=== PATIENT | male | born 1970 | race African-American/Black ===

== ENCOUNTER 2024-04-19 07:11 | Inpatient (IN) | payer MEDICAID ==
[~2024-04-19] VITALS: Ht 172.7 cm; Wt 118.4 kg
[2024-04-19 07:16] VITALS: O2SAT 98
[2024-04-19 08:02] LABS: BASOPHILS % 0.2 % (0.0-2.0); EOSINOPHILS % 4.6 % (0.0-5.0); HEMATOCRIT. 46.7 % (42.0-52.0); LYMPHOCYTES % 16.7 % (20.0-50.0); MEAN CORPUSCULAR HEMOGLOBIN 26.2 pg (28.0-32.0); MEAN CORPUSCULAR HGB CONC 32.1 g/dL (31.0-37.0); MEAN CORPUSCULAR VOLUME 81.5 fL (80.0-94.0); MEAN PLATELET VOLUME 7.7 fl (7.4-10.4); MONOCYTES % 8.6 % (2.0-8.0); NEUTROPHILS % 69.9 % (40.0-76.0); PLATELET 197 x1000/uL (130-400); RED BLOOD CELL COUNT 5.73 mill/uL (4.7-6.1); RED CELL DISTRIBUTION WIDTH 16.3 % (11.6-14.6)
[2024-04-19 08:11] LABS: PROTHROMBIN TIME 11.1 sec (9.6-11.0)
[2024-04-19 08:14] LABS: CHLORIDE 103 mEq/L (98-107); POTASSIUM 3.8 mEq/L (3.5-5.1); SODIUM 138 mEq/L (136-145)
[2024-04-19 08:15] LABS: CALCIUM 8.8 mg/dL (8.7-10.4); CARBON DIOXIDE 28 mEq/L (21-32)
[2024-04-19 08:20] LABS: CREATININE 0.8 mg/dL (0.6-1.3); GLUCOSE 160 mg/dL (70-105); UREA NITROGEN BLOOD 16 mg/dL (9-23)
[2024-04-19 08:21] LABS: ETHANOL BLOOD < 10 mg/dL (<10)
[2024-04-19 08:27] LABS: TROPONIN I HIGH SENSITIVITY < 4 ng/L (3.0-53)
[2024-04-19] MEDS: IOHEXOL-350 100 ML BOTTLE ONE (10:24)
[2024-04-19 13:35] LABS: CLARITY URINE CLEAR (CLEAR); COLOR URINE YELLOW (YELLOW); GLUCOSE URINE 3+ (NEGATIVE); KETONES URINE 2+ (NEGATIVE); LEUKOCYTE ESTERASE URINE NEGATIVE (NEGATIVE); NITRITE URINE NEGATIVE (NEGATIVE); OCCULT BLOOD URINE NEGATIVE (NEGATIVE); PROTEIN URINE NEGATIVE (NEGATIVE); SPECIFIC GRAVITY URINE 1.075 (1.005-1.030)
[2024-04-19 13:46] LABS: RBC URINE NONE SEEN /hpf (0-2); SQUAMOUS EPITHELIAL CELL URINE NONE SEEN /lpf (RARE/1+); WBC URINE 0-2 /hpf (0-2)
[2024-04-19 13:47] LABS: BACTERIA URINE RARE; YEAST URINE NONE SEEN
[2024-04-19 14:01] LABS: *AMPHETAMINES SCREEN URINE NEGATIVE (NEGATIVE); *BARBITURATES SCREEN URINE NEGATIVE (NEGATIVE); *BENZODIAZEPINES SCREEN URINE NEGATIVE (NEGATIVE); *COCAINE SCREEN URINE PRESUMPTIVE POSITIVE (NEGATIVE); METHADONE URINE SCREEN NEGATIVE (NEGATIVE); OPIATES URINE SCREEN NEGATIVE (NEGATIVE)
[2024-04-19 14:02] LABS: CANNABINOID URINE SCREEN NEGATIVE (NEGATIVE); ECSTASY MDMA SCREEN URINE NEGATIVE (NEGATIVE); PHENCYCLIDINE URINE SCREEN NEGATIVE (NEGATIVE)
[2024-04-19 18:47] VITALS: BP 168/99; PULSE 91; RESP 20; TEMP 36.4736
[2024-04-19 20:00] VITALS: BP 165/78; PULSE 65; RESP 18; TEMP 36.6696; O2SAT 97
[2024-04-19] MEDS: FAMOTIDINE 20MG TABLET PO SCH (20:48)
[2024-04-19] MEDS: AMLODIPINE 10MG TABLET PO SCH (20:48)
[2024-04-20] VITALS: BP 132/69; PULSE 60; RESP 19; TEMP 36.3918; O2SAT 97
[2024-04-20 08:00] VITALS: BP 133/68; PULSE 65; RESP 20; TEMP 36.72516; O2SAT 98
[2024-04-20] MEDS: POVIDONE-IODINE 10% TOPICAL SOLN 240ML TOP SCH (09:10)
[2024-04-20 12:00] VITALS: BP 141/69; PULSE 69; RESP 18; TEMP 36.16956; O2SAT 98
[2024-04-20 16:00] VITALS: BP 139/70; PULSE 70; RESP 19; TEMP 36.28068; O2SAT 99
[2024-04-20] MEDS: CEFTRIAXONE 1GM/50ML 50 ML IV SCH (16:57)
[2024-04-20 18:08] LABS: BASOPHILS % 0.2 % (0.0-2.0); EOSINOPHILS % 3.5 % (0.0-5.0); HEMATOCRIT. 47.1 % (42.0-52.0); HEMOGLOBIN. 15.4 g/dL (14.0-18.0); MEAN CORPUSCULAR HEMOGLOBIN 26.3 pg (28.0-32.0); MEAN CORPUSCULAR HGB CONC 32.6 g/dL (31.0-37.0); MEAN CORPUSCULAR VOLUME 80.8 fL (80.0-94.0); MEAN PLATELET VOLUME 7.8 fl (7.4-10.4); MONOCYTES % 8.6 % (2.0-8.0); NEUTROPHILS % 55.7 % (40.0-76.0); PLATELET 191 x1000/uL (130-400); RED BLOOD CELL COUNT 5.83 mill/uL (4.7-6.1); RED CELL DISTRIBUTION WIDTH 16.2 % (11.6-14.6); WHITE BLOOD COUNT 6.3 x1000/uL (4.5-11.0)
[2024-04-20 18:18] LABS: CARBON DIOXIDE 26 mEq/L (21-32); CHLORIDE 102 mEq/L (98-107); POTASSIUM 3.8 mEq/L (3.5-5.1); SODIUM 135 mEq/L (136-145)
[2024-04-20 18:19] LABS: CALCIUM 8.9 mg/dL (8.7-10.4)
[2024-04-20 18:24] LABS: CREATININE 0.7 mg/dL (0.6-1.3); GLUCOSE 152 mg/dL (70-105); UREA NITROGEN BLOOD 11 mg/dL (9-23)
[2024-04-20] MEDS: VANCOMYCIN 2,000 MG in SODIUM CHLORIDE 0.9% 500 ML IV SCH (19:08)
[2024-04-20 20:00] VITALS: BP 131/77; PULSE 62; RESP 18; TEMP 36.3918; O2SAT 99
[2024-04-20] MEDS: MUPIROCIN 2% OINT 22GM TOP SCH (21:44)
[2024-04-20] MEDS: VANCOMYCIN 1.25GM PMX (XELLIA) 250 ML IV SCH (23:00)
[2024-04-20] MEDS ORDERED: IOHEXOL-300 100 ML BOTTLE ONE (23:41)
[2024-04-21] VITALS: BP 127/59; PULSE 55; RESP 18; TEMP 36.3918; O2SAT 99
[2024-04-21 04:00] VITALS: BP 117/57; PULSE 56; RESP 18; TEMP 36.50292; O2SAT 99
[2024-04-21 08:00] VITALS: BP 127/67; PULSE 70; RESP 18; TEMP 36.16956; O2SAT 98
[2024-04-21 12:00] VITALS: BP 131/70; PULSE 69; RESP 18; TEMP 36.114; O2SAT 98
[2024-04-21 16:00] VITALS: BP 137/74; PULSE 64; RESP 18; TEMP 36.44736; O2SAT 18
[2024-04-21 20:00] VITALS: BP 122/62; PULSE 59; RESP 18; TEMP 36.6696; O2SAT 100
[2024-04-22] VITALS: BP 126/68; PULSE 60; RESP 18; TEMP 36.6696; O2SAT 98
[2024-04-22 04:00] VITALS: BP 146/73; PULSE 59; RESP 18; TEMP 36.6696; O2SAT 100
[2024-04-22 08:00] VITALS: BP 145/70; PULSE 54; PULSE 61; RESP 18; TEMP 36.16956; TEMP 36.6696; O2SAT 96
[2024-04-22 08:43] LABS: CHLORIDE 104 mEq/L (98-107); POTASSIUM 4.5 mEq/L (3.5-5.1); SODIUM 135 mEq/L (136-145)
[2024-04-22 08:44] LABS: CALCIUM 8.7 mg/dL (8.7-10.4); CARBON DIOXIDE 26 mEq/L (21-32)
[2024-04-22 08:49] LABS: CREATININE 0.8 mg/dL (0.6-1.3); GLUCOSE 202 mg/dL (70-105); UREA NITROGEN BLOOD 19 mg/dL (9-23)
[2024-04-22 12:00] VITALS: BP 136/67; PULSE 61; RESP 18; TEMP 36.16956; O2SAT 98
[2024-04-22] MEDS: KETOROLAC 30MG/ML VIAL IV PRN (15:45)
[2024-04-22 16:00] VITALS: BP 147/78; PULSE 88; RESP 18; TEMP 36.3918; O2SAT 98
[2024-04-22] MEDS: VANCOMYCIN 1.5GM PMX (XELLIA) 300 ML IV SCH (16:35)
[2024-04-22 20:00] VITALS: BP 140/72; PULSE 69; RESP 18; TEMP 36.22512; O2SAT 99
[2024-04-23] VITALS: BP 149/78; PULSE 78; RESP 19; TEMP 36.55848; O2SAT 93
[2024-04-23 02:00] VITALS: BP 138/78; PULSE 72; RESP 18; TEMP 36.28068; O2SAT 93
[2024-04-23 04:00] VITALS: BP 145/78; PULSE 78; RESP 18; TEMP 36.3918; O2SAT 93
[2024-04-23 12:00] VITALS: BP 125/69; PULSE 57; RESP 18; TEMP 36.72516; O2SAT 100
[2024-04-23 16:00] VITALS: BP 133/78; PULSE 63; RESP 18; TEMP 36.61404; O2SAT 98
[2024-04-23 20:00] VITALS: BP 127/66; RESP 18; TEMP 36.83628; O2SAT 99
[2024-04-23] MEDS: VANCOMYCIN 1.5GM/250ML 250 ML IV SCH (22:05)
[2024-04-24] VITALS: BP 116/70; PULSE 77; RESP 17; TEMP 36.44736; O2SAT 97
[2024-04-24 04:00] VITALS: BP 124/80; PULSE 68; RESP 16; TEMP 37.00296; O2SAT 98
[2024-04-24 08:00] VITALS: BP 137/56; PULSE 52; RESP 19; TEMP 36.50292; O2SAT 100
[2024-04-24 12:00] VITALS: BP 138/68; PULSE 57; RESP 20; TEMP 36.61404; O2SAT 100
[2024-04-24 12:29] LABS: BASOPHILS % 0.1 % (0.0-2.0); EOSINOPHILS % 1.6 % (0.0-5.0); HEMATOCRIT. 47.8 % (42.0-52.0); HEMOGLOBIN. 15.3 g/dL (14.0-18.0); LYMPHOCYTES % 31.3 % (20.0-50.0); MEAN CORPUSCULAR HEMOGLOBIN 26.1 pg (28.0-32.0); MEAN CORPUSCULAR VOLUME 81.5 fL (80.0-94.0); MEAN PLATELET VOLUME 8.3 fl (7.4-10.4); MONOCYTES % 7.9 % (2.0-8.0); NEUTROPHILS % 59.1 % (40.0-76.0); PLATELET 175 x1000/uL (130-400); RED BLOOD CELL COUNT 5.87 mill/uL (4.7-6.1); RED CELL DISTRIBUTION WIDTH 15.9 % (11.6-14.6); WHITE BLOOD COUNT 5.3 x1000/uL (4.5-11.0)
[2024-04-24 12:33] LABS: CHLORIDE 102 mEq/L (98-107); POTASSIUM 4.4 mEq/L (3.5-5.1); SODIUM 135 mEq/L (136-145)
[2024-04-24 12:34] LABS: CARBON DIOXIDE 28 mEq/L (21-32)
[2024-04-24 12:35] LABS: CALCIUM 9.1 mg/dL (8.7-10.4)
[2024-04-24 12:39] LABS: CREATININE 0.8 mg/dL (0.6-1.3); GLUCOSE 222 mg/dL (70-105); UREA NITROGEN BLOOD 13 mg/dL (9-23); VANCOMYCIN TROUGH 16.9 ug/mL (5.0-10.0)
[2024-04-24 16:00] VITALS: BP 124/62; PULSE 58; RESP 20; TEMP 36.50292; O2SAT 99
[2024-04-24 20:00] VITALS: BP 136/66; PULSE 63; RESP 18; TEMP 36.3918; O2SAT 97
[2024-04-24] MEDS: HYDROCODONE/ACETAMINOPHEN 5/325MG TABLET PO PRN (21:29)
[2024-04-24] MEDS ORDERED: NALOXONE HCL 0.4MG/ML VIAL IV PRN (21:30)
[2024-04-25] VITALS: BP 134/68; PULSE 70; RESP 18; TEMP 36.61404; O2SAT 98
[2024-04-25 04:00] VITALS: BP 131/63; PULSE 53; RESP 18; TEMP 36.50292; O2SAT 96
[2024-04-25 08:00] VITALS: BP 135/80; PULSE 52; RESP 17; TEMP 36.00288; O2SAT 99
[2024-04-25 12:00] VITALS: BP 109/48; PULSE 57; RESP 18; TEMP 36.3918; O2SAT 99
[2024-04-25 16:00] VITALS: BP 135/63; PULSE 58; RESP 18; TEMP 36.00288; O2SAT 98
[2024-04-25 20:00] VITALS: BP 113/55; PULSE 58; RESP 19; TEMP 36.61404; O2SAT 96
[2024-04-26] VITALS: BP 124/57; PULSE 57; RESP 18; TEMP 36.114; O2SAT 100
[2024-04-26 04:00] VITALS: BP 126/61; PULSE 54; RESP 18; TEMP 35.89176; O2SAT 98
[2024-04-26 08:00] VITALS: BP 129/69; PULSE 55; RESP 20; RESP 67; TEMP 36.6696; O2SAT 97
[2024-04-26 12:00] VITALS: BP 121/62; PULSE 81; RESP 19; TEMP 36.50292; O2SAT 99
[2024-04-26 16:00] VITALS: BP_SYST 119; BP_SYST 121; BP_DIAS 62; BP_DIAS 63; PULSE 79; PULSE 81; RESP 19; TEMP 36.28068; TEMP 36.50292; O2SAT 99
[2024-04-26 20:42] VITALS: BP 118/65; PULSE 53; RESP 19; TEMP 36.55848; O2SAT 100
[2024-04-27 00:52] VITALS: BP 126/61; PULSE 58; RESP 19; TEMP 36.16956; O2SAT 99
[2024-04-27 04:00] VITALS: BP 119/66; PULSE 54; RESP 19; TEMP 36.3918; O2SAT 98
[2024-04-27 08:00] VITALS: BP 128/67; PULSE 59; RESP 19; TEMP 36.50292; O2SAT 100
== END 2024-04-27 15:25 | disposition home or self-care (01) | DRG 816 ==
LOC: ER 07:11 → EDBD 07:11 → 7EST 08:17 → EDBD 08:17 → EDBEDREQTM 08:23 → EDBEDREQ 08:23 → 8EST 04-24 11:10
PROVIDERS: ADMIT Internal Medicine; ATTEND Internal Medicine
DX: T40.5X1A Poisoning by cocaine, accidental (unintentional), initial encounter (principal); G92.8 Other toxic encephalopathy; L89.890 Pressure ulcer of other site, unstageable; S91.301A Unspecified open wound, right foot, initial encounter; E66.9 Obesity, unspecified; M79.671 Pain in right foot; L03.113 Cellulitis of right upper limb; Z68.39 Body mass index [BMI] 39.0-39.9, adult; F14.90 Cocaine use, unspecified, uncomplicated; S51.801A Unspecified open wound of right forearm, initial encounter; F19.10 Other psychoactive substance abuse, uncomplicated; Z71.51 Drug abuse counseling and surveillance of drug abuser; X58.XXXA Exposure to other specified factors, initial encounter; Y93.89 Activity, other specified; Y92.89 Other specified places as the place of occurrence of the external cause; Y99.8 Other external cause status
CPT/HCPCS: 36415; 70496; 70498; 71045; 71260; 73630; 73700; 80048; 80202; 80305; 80320; 81003; 83036; 84484; 85025; 93005; 97162; 99291; J0696; J1885; J3370; J7040; Q9967; G0480